=== PATIENT | male | born 1985 | race Caucasian/White ===

== ENCOUNTER 2019-09-23 19:46 | Emergency (ER) | payer SELFPAY ==
[2019-09-23 19:50] VITALS: BP 135/83; PULSE 85; RESP 15; TEMP 36.3; O2SAT 100; BMI 20.9
--- NOTE | 2019-09-23 20:01 | ED.DENTAL ---
HPI - Dental/Oral <Saumya Salmeron PA-C - Last Filed: 09/23/19 21:44> General Chief complaint: Dental/Oral Stated complaint: states needs antibiotics for teeth Time Seen by Provider: 09/23/19 20:01 Source: patient Mode of arrival: Ambulatory Limitations: no limitations History of Present Illness HPI Narrative: This 34-year-old male with long history of dental issues complains of worsening dental pain and gum swelling, worst in his left lower comes since yesterday but has also noticed areas left upper and right upper for the last week. He has had infections before and thinks he needs to restart antibiotics. He has felt somewhat warm and cold but no known fevers or temperatures taken. He states pain is worse at HS. He states he has had minimal congestion, no cough, earache, sore throat or upper respiratory symptoms. No dyspnea or chest pain. He has been taking ibuprofen for the pain. He denies any other concerns and hoping he can get antibiotic started while waiting to see his dentist Related Data Previous Rx's Medication Instructions Recorded amoxicillin 500 mg PO Q8H #20 cap 09/23/19 Allergies Allergy/AdvReac Type Severity Reaction Status Date / Time No Known Allergies Allergy Unknown Verified 09/23/19 19:50 [NO KNOWN ALLERGIES] INGREDIENT: NKA - NO KNOWN Allergy Unknown Uncoded 03/11/18 13:01 ALLERGIES Review of Systems <Saumya Salmeron PA-C - Last Filed: 09/23/19 21:44> Review of Systems ROS Unobtainable: All systems reviewed & are unremarkable except as noted in HPI and below Patient History <Saumya Salmeron PA-C - Last Filed: 09/23/19 21:44> Medical History (Updated 09/23/19 @ 20:17 by Saumya Salmeron PA-C) Dental caries (Chronic) Surgical History (Updated 09/23/19 @ 20:17 by Saumya Salmeron PA-C) No history of previous surgery (Acute) Social History Smoking Status: Current every day smoker alcohol intake frequency: holidays/special occasions only Substance Use Type: does not use Exam <Saumya Salmeron PA-C - Last Filed: 09/23/19 21:44> Narrative Exam Narrative: GENERAL APPEARANCE: Patient sitting comfortably, in no distress. HEAD: No sinus TTP. EYES: PERRL, EOMI. EARS: Normal auditory canals, TMS intact with normal light reflexes. ORAL CAVITY: Normal oropharynx. Poor dentition with some mild erythema and perhaps minimal edema left lower gumline along the labial surface, mild tenderness. No fluctuance THROAT: Clear. NECK/THYROID: Neck supple, full range of motion, no cervical lymphadenopathy. LUNGS: Clear to auscultation bilaterally, clear to percussion, no cough on exam. HEART: RRR without murmur, nl S1, S2, no S3 or S4. Initial Vital Signs Initial Vital Signs: Vital Signs Temperature 97.4 F L 09/23/19 19:50 Pulse Rate 85 09/23/19 19:50 Respiratory Rate 15 09/23/19 19:50 Blood Pressure 135/83 09/23/19 19:50 Pulse Oximetry 100 09/23/19 19:50 <DO Jessie Alicea Last Filed: 09/24/19 01:05> Initial Vital Signs Initial Vital Signs: Vital Signs Temperature 97.4 F L 09/23/19 19:50 Pulse Rate 85 09/23/19 19:50 Respiratory Rate 15 09/23/19 19:50 Blood Pressure 135/83 09/23/19 19:50 Pulse Oximetry 100 09/23/19 19:50 Course <Saumya Salmeron PA-C - Last Filed: 09/23/19 21:44> Orders Ordered: Discontinued Medications Amoxicillin (Trimox) 500 mg PO NOW ONE Stop: 09/23/19 20:12 Last Admin: 09/23/19 20:23 Dose: 500 mg Documented by: CIRO Vital Signs Vital signs: Vital Signs - 8 hr 09/23/19 19:50 Temperature 97.4 F L Pulse Rate 85 Respiratory Rate 15 Blood Pressure 135/83 Pulse Oximetry 100 <Irina Luevano DO - Last Filed: 09/24/19 01:05> Orders Ordered: Discontinued Medications Amoxicillin (Trimox) 500 mg PO NOW ONE Stop: 09/23/19 20:12 Last Admin: 09/23/19 20:23 Dose: 500 mg Documented by: CIRO Vital Signs Vital signs: Vital Signs - 8 hr 09/23/19 19:50 Temperature 97.4 F L Pulse Rate 85 Respiratory Rate 15 Blood Pressure 135/83 Pulse Oximetry 100 Discharge Plan Departure Patient Disposition: Home Clinical Impression: Toothache, Dental infection Discharge Date/Time: 09/23/19 20:26 Instructions: DI for Dental Pain Activity Restrictions/Additional Instructions: Please continue ibuprofen, 800 mg every 8 hours. Do not take more than this. You can add Tylenol as needed and also restart your Orajel or similar topical anesthetic. We have given you a dose of amoxicillin here tonight and I have sent in a prescription to [facility] for you. Please call your dentist 1st thing tomorrow and let the office know that you were seen here and need to arrange follow-up. Prescriptions: New amoxicillin 500 mg capsule 500 mg PO Q8H Qty: 20 RF: 0 Referrals: Dr. Angelique DDS [Other] Will Christianson MD [Primary Care Provider] -
[2019-09-23] MEDS: AMOXICILLIN 250 MG CAPSULE 500 MG PO (20:23)
== END 2019-09-23 20:26 | disposition home or self-care (01) ==
PROVIDERS: Emergency Provider Internal Medicine; Family Provider Family Medicine; PCP Family Medicine
DX: K04.7 Periapical abscess without sinus (principal)
CPT/HCPCS: 99282; 99283

== ENCOUNTER → 2021-12-21 08:01 | Outpatient (CLI) | payer OTHER, MEDICAID, SELFPAY ==
[2021-12-21 19:37] LABS: COVID19 - ORCAS (NP or Nasal) POSITIVE (Negative)
== END ==
PROVIDERS: Family Provider Family Medicine; PCP Family Medicine; Visit Provider Physician Assistant Medical
DX: U07.1 COVID-19 (principal); Z20.822 Contact with and (suspected) exposure to COVID-19
CPT/HCPCS: U0003